=== PATIENT | male | born 1960 ===

== ENCOUNTER 2016-07-04 12:32 | Emergency (ER) | payer SELFPAY ==
[~2016-07-04] VITALS: Ht 188 cm; Wt 81.6 kg
[2016-07-04] MEDS ORDERED: SODIUM CHLORIDE 0.9% 1,000 ML IVB ONE (12:50)
[2016-07-04] MEDS ORDERED: HALOPERIDOL LACTATE 5 MG/ML INJ VIAL IM ONE (13:00)
[2016-07-04] MEDS ORDERED: diphenhdrAMINE HCL 50 MG/1 ML VL IV ONE (13:00)
[2016-07-04] MEDS ORDERED: LORazepam 2MG/ML-1ML VIAL IV ONE (13:00)
[2016-07-04 13:43] LABS: Basophils # (auto) 0.1 uL; Basophils % (auto) 0.8 % (0.0-2.0); Eosinophils # (auto) 0 uL; Eosinophils % (auto) 0.1 % (0.0-7.0); Hematocrit 42.3 % (41.0-53.0); Hemoglobin 14.3 g/dL (13.5-17.5); Lymphocytes # (auto) 2.1 uL; Lymphocytes % (auto) 32.6 % (10.0-50.0); Mean Corpuscular Hgb Conc. 33.7 g/dL (32.0-36.0); Mean Corpuscular Volume 97.7 fL (80.0-100.0); Mean Platelet Volume 7.8 fL (7.4-10.4); Monocytes # (auto) 0.8 uL; Monocytes % (auto) 11.7 % (0.0-12.0); Neutrophils # (auto) 3.6 uL; Neutrophils % (auto) 54.8 % (37.0-80.0); Platelet Count (auto) 270 10^3/uL (140-450); Red Cell Distribution Width 14.9 % (11.6-16.0); White Blood Cell 6.5 10^3/uL (4.4-10.8)
[2016-07-04 13:49] LABS: INR 1.04 (0.9-1.15); Partial Thromboplastin Time 24.7 sec (22.64-33.71); Prothrombin Time 11.2 sec (9.37-12.3)
[2016-07-04 13:50] LABS: Albumin 3.1 g/dL (3.4-5.0); BUN/Creatinine Ratio 20.8; Calcium 7.8 mg/dL (8.5-10.1); Magnesium 1.9 mg/dL (1.6-2.6); Potassium 3.3 mmol/L (3.5-5.1)
[2016-07-04 13:54] LABS: Bilirubin, Total 0.9 mg/dL (0.2-1.0); Total Protein 7.1 g/dL (6.4-8.2)
[2016-07-04] MEDS ORDERED: PROPOFOL 100 ML IV ONE (14:13)
[2016-07-04] MEDS ORDERED: SUCCINYLCHOLINE CHLORIDE 20 MG/ML 10ML VIAL IV ONE (14:15)
[2016-07-04] MEDS ORDERED: ETOMIDATE (2MG/ML) 20ML VIAL IV ONE (14:15)
[2016-07-04] MEDS ORDERED: MIDAZOLAM DRIP 100 mg/100mL NS 100 ML IV ONE (14:48)
[2016-07-04] MEDS ORDERED: PROPOFOL 100 ML IV SCH (15:29)
[2016-07-04] MEDS ORDERED: MIDAZOLAM DRIP 100 mg/100mL NS 100 ML IV SCH (15:29)
[2016-07-04 16:15] VITALS: BP 90/42
== END 2016-07-04 16:59 | disposition short-term general hospital (02) ==
LOC: EDBD 12:45 → ER 12:45
DX: R41.82 Altered mental status, unspecified (principal); I62.01 Nontraumatic acute subdural hemorrhage; F10.129 Alcohol abuse with intoxication, unspecified
CPT/HCPCS: 31500; 36415; 51702; 70450; 71010; 80053; 80320; 83735; 84484; 85025; 85610; 85730; 93005; 96361; 96372; 96374; 96375; 99291; J1200; J1630; J2060; J2704; J7030; 94002